=== PATIENT | male | born 1965 | race Caucasian/White ===

== ENCOUNTER 2022-07-22 09:44 | Day surgery (SDC) | payer MEDICARE, OTHER | END 2022-07-22 23:06 | disposition home or self-care (01) | LOC: NM 09:44 → MHTC 07-23 10:30 | DX: I42.0 Dilated cardiomyopathy (principal); R06.02 Shortness of breath; R06.00 Dyspnea, unspecified | CPT/HCPCS: 78452; 93017; A9500 ==

== ENCOUNTER 2022-08-28 07:13 | Day surgery (SDC) | payer MEDICARE, OTHER | END 2022-08-28 22:42 | disposition home or self-care (01) | LOC: CT 07:13 | DX: Q26.8 Other congenital malformations of great veins (principal); I25.10 Atherosclerotic heart disease of native coronary artery without angina pectoris; I48.0 Paroxysmal atrial fibrillation; J44.9 Chronic obstructive pulmonary disease, unspecified; F17.210 Nicotine dependence, cigarettes, uncomplicated; E78.5 Hyperlipidemia, unspecified | CPT/HCPCS: 75574; Q9967 ==

== ENCOUNTER 2023-01-29 12:33 | Observation (INO) | payer MEDICARE, OTHER ==
[~2023-01-29] VITALS: Ht 193 cm; Wt 84.9 kg
[2023-01-29 13:45] LABS: BASOPHILS ABSOLUTE AUTO 0.07 K/mm3 (0.00-0.23); BASOPHILS PERCENT AUTO 1 % (0-2); EOSINOPHILS PERCENT AUTO 5 % (0-6); Hematocrit 30.5 % (37.0-53.0); Hemoglobin 10.1 g/dL (13.5-17.5); IMMATURE GRAN ABSOLUTE AUTO 0.01 K/mm3 (0.00-0.10); IMMATURE GRAN PERCENT AUTO 0 % (0-1); LYMPHOCYTES PERCENT AUTO 29 % (21-46); MONOCYTES ABSOLUTE AUTO 0.67 K/mm3 (0.16-1.47); MONOCYTES PERCENT AUTO 12 % (4-13); Mean Corpuscular HGB 29.4 pg (26.0-34.0); Mean Corpuscular HGB Conc 33.1 g/dL (31.5-36.5); Mean Corpuscular Volume 89 fL (80-100); Mean Platelet Volume 9.7 fL (9.1-12.4); NEUTROPHILS ABSOLUTE AUTO 2.96 K/mm3 (1.96-9.15); NEUTROPHILS PERCENT AUTO 53 % (41-73); Platelet Count 265 K/mm3 (150-400); RDW Coefficient Variation 13.6 % (11.7-14.2); RDW Standard Deviation 44.5 fL (35.1-46.3); Red Blood Cell Count 3.43 M/mm3 (4.30-5.90); White Blood Cell Count 5.61 K/mm3 (4.00-11.30)
[2023-01-29 14:15] LABS: Albumin, Blood 3.5 g/dL (3.4-5.0); Bilirubin, Total 0.6 mg/dL (0.1-1.0); Bun/Creatinine Ratio 13.4 (12.0-20.0); Calcium, Blood 8.5 mg/dL (8.5-10.1); Creatinine, Blood 1.12 mg/dL (0.60-1.20); Globulin, Blood 3.5 g/dL (2.2-4.0); Potassium, Blood 4.3 mmol/L (3.5-5.5)
[2023-01-29 14:29] LABS: International Normalized Ratio 1.07; Prothrombin Time Results 11.2 Sec (9.7-11.5)
[2023-01-29] MEDS ORDERED: XARELTO20 M1 PO (17:41)
[2023-01-29] MEDS ORDERED: ATORVASTATIN CA20 MG PO (17:41)
[2023-01-29] MEDS ORDERED: CLONAZEPAM1 MG PO (17:41)
[2023-01-29] MEDS ORDERED: PREGABALIN100 MG PO (17:42)
[2023-01-29] MEDS ORDERED: Betapace120 MG PO (17:42)
[2023-01-29] MEDS ORDERED: SYMBICORT 16010.2 GM INH (17:42)
[2023-01-29] MEDS ORDERED: MONT10T PO (17:42)
--- NOTE | 2023-01-29 17:50 | NUR ---
PT CHART REVIEWED FOR ADMISSION
[2023-01-29 18:04] VITALS: BP 116/70
[2023-01-29] MEDS ORDERED: ALBU90OI INH (18:25)
[2023-01-29] MEDS ORDERED: NITR.4SL SL (18:27)
[2023-01-29] MEDS ORDERED: Acetaminophen650 M1 PO (18:28)
--- NOTE | 2023-01-29 19:38 | NUR ---
SHIFT SUMMARY: GARRET IS A&OX4. VSS, NO ACUTE EVENTS SINCE TRANSFERRING TO THE FLOOR LATE THIS SHIFT. HE IS INDEPENDENT IN THE ROOM, TOLERATING PO INTAKE WITHOUT DIFFICULTY. DR. ESPINOZA VISITED PT AT BEDSIDE AND PLAN IS FOR AN UPPER ENDOSCOPY TOMORROW AFTERNOON. PT IS PLEASANT AND COOPERATIVE, DENIES PAIN. HE IS LYING IN BED WITH THE CALL LIGHT IN REACH. REPORT WAS GIVEN TO BACK GRAY CLOTH WASHER RN.
[2023-01-29 20:12] LABS: Hematocrit 29.6 % (37.0-53.0); Hemoglobin 9.6 g/dL (13.5-17.5)
[2023-01-29 20:31] VITALS: BP 102/72
--- NOTE | 2023-01-30 04:21 | NUR ---
SHIFT SUMMARY 57 YR M ADMITTED ON 01/29/23 FOR [facility]. FULL CODE. NO ACUTE CHANGES THIS SHIFT. PT WAS ABLE TO EAT A SANDWHICH AND MELISSA CRACKERS AND TOLERATED IT WELL. NO C/O PAIN OR DISCOMFORT THIS SHIFT. PT IS INDEPENDANT IN THE ROOM AND NO REPORTED BM THIS SHIFT. PLAN IS FOR ENDOSCOPY THIS AFTERNOON SO PT IS NOW ON CLEAR LIQUIDS. PT IS PLEASANT AND COOPERATIVE WITH CARE. BED IS IN LOW POSITION AND CALL LIGHT IS WITHIN REACH. PT HAS SLEPT FOR MOST OF THIS SHIFT.
[2023-01-30 05:22] LABS: BASOPHILS ABSOLUTE AUTO 0.07 K/mm3 (0.00-0.23); BASOPHILS PERCENT AUTO 1 % (0-2); EOSINOPHILS ABSOLUTE AUTO 0.26 K/mm3 (0.00-0.68); EOSINOPHILS PERCENT AUTO 4 % (0-6); Hematocrit 30.4 % (37.0-53.0); Hemoglobin 9.8 g/dL (13.5-17.5); IMMATURE GRAN ABSOLUTE AUTO 0.01 K/mm3 (0.00-0.10); IMMATURE GRAN PERCENT AUTO 0 % (0-1); LYMPHOCYTES ABSOLUTE AUTO 1.74 K/mm3 (0.84-5.20); LYMPHOCYTES PERCENT AUTO 28 % (21-46); MONOCYTES ABSOLUTE AUTO 0.66 K/mm3 (0.16-1.47); MONOCYTES PERCENT AUTO 11 % (4-13); Mean Corpuscular HGB 28.7 pg (26.0-34.0); Mean Corpuscular HGB Conc 32.2 g/dL (31.5-36.5); Mean Corpuscular Volume 89 fL (80-100); Mean Platelet Volume 9.4 fL (9.1-12.4); NEUTROPHILS ABSOLUTE AUTO 3.55 K/mm3 (1.96-9.15); NEUTROPHILS PERCENT AUTO 56 % (41-73); Platelet Count 240 K/mm3 (150-400); RDW Coefficient Variation 13.5 % (11.7-14.2); RDW Standard Deviation 43.9 fL (35.1-46.3); Red Blood Cell Count 3.42 M/mm3 (4.30-5.90); White Blood Cell Count 6.29 K/mm3 (4.00-11.30)
[2023-01-30 05:55] LABS: Bun/Creatinine Ratio 12.4 (12.0-20.0); Calcium, Blood 8.5 mg/dL (8.5-10.1); Creatinine, Blood 1.13 mg/dL (0.60-1.20); Potassium, Blood 4.2 mmol/L (3.5-5.5)
[2023-01-30 07:51] VITALS: BP 123/79
--- NOTE | 2023-01-30 16:09 | NUR ---
PT HAS A 20G IV IN R AC THAT RUNS WELL TO GRAVITY AND SHOWS NO SIGNS OF INFILTRATION. NO DRAINAGE, REDNESS, OR INFLAMMATION.
[2023-01-30 16:13] VITALS: BP 124/84
--- NOTE | 2023-01-30 17:30 | NUR ---
01/30/23 1730 Jericho Tellez AN[address]IA PER DR. KHANNA MONITOR INTACT WITH CONTINUOUS PULSE OXIMETRY, CONTINUOUS END TITAL CO2, AND INTERMITTENT BLOOD PRESSURE.AND EKG
[2023-01-30 19:42] VITALS: BP 119/80
--- NOTE | 2023-01-30 19:42 | NUR ---
SHIFT SUMMARY PT IS ALERT AND ORIENTED X4. EGD TODAY, SEE NOTES. DIET ADVANCED, PT TOLORATED WELL. NO ACUTE CHANGES THIS SHIFT. INDEPENDENT IN THE ROOM, R/A. BED IN THE LOWEST POSITION WITH CALL LIGHT IN REACH. PT CALLS APPROPRIATELY
--- NOTE | 2023-01-31 04:09 | NUR ---
SHIFT SUMMARY PATIENT HAD NO ACUTE CHANGES. AXOX 4 AND INDEPENDENT IN ROOM. PIV REMAINS INTACT. TELE MONITOR NSR 62. DENIES CHEST PAIN, SOB, AND N/V. VSS/AFEBRILE. SLEPT MOST OF SHIFT. COOPERATIVE WITH CARE. CALL LIGHT IN REACH. BED IN LOWEST POSITION. WILL CONTINUE TO MONITOR UNTIL DAY SHIFT NURSE ASSUMES CARE.
[2023-01-31 06:11] LABS: Hematocrit 31.6 % (37.0-53.0); Hemoglobin 10.4 g/dL (13.5-17.5)
[2023-01-31 07:09] VITALS: BP 110/76
[2023-01-31] MEDS ORDERED: ASPI81CH PO (11:02)
[2023-01-31] MEDS ORDERED: OMEP20ER PO (11:03)
--- NOTE | 2023-01-31 12:48 | NUR ---
DISCHARGE REVIEWED WITH PT. IV PULLED INTACT. NO TELE. PT VERBALIZED UNDERSTANDING MEDS AND INST. PT WHEELED TO DOOR AT 1245
== END 2023-01-31 12:46 | disposition home or self-care (01) ==
LOC: ER 12:33 → MEDS 12:34
PROVIDERS: Emergency Medicine; ADMIT Family Medicine
DX: K25.4 Chronic or unspecified gastric ulcer with hemorrhage (principal); D68.32 Hemorrhagic disorder due to extrinsic circulating anticoagulants; T45.515A Adverse effect of anticoagulants, initial encounter; D62 Acute posthemorrhagic anemia; G47.33 Obstructive sleep apnea (adult) (pediatric); I25.10 Atherosclerotic heart disease of native coronary artery without angina pectoris; I48.0 Paroxysmal atrial fibrillation; G89.29 Other chronic pain; Z87.891 Personal history of nicotine dependence; Z95.828 Presence of other vascular implants and grafts; Z79.82 Long term (current) use of aspirin; Z79.01 Long term (current) use of anticoagulants; Z79.899 Other long term (current) drug therapy
CPT/HCPCS: 36415; 74176; 80048; 80053; 82272; 85014; 85018; 85025; 85610; 85730; 86850; 86900; 86901; 88305; 88342; 93005; 93010; 94640; 94664; 94760; 96374; 96376; 99285-25; A9270; C9113; G0378; J2001; J2704; J7120